=== PATIENT | male | born 1950 | race Caucasian/White ===

== ENCOUNTER 2022-12-15 09:15 | Emergency (ER) | payer MEDICARE, MEDICAID ==
[~2022-12-15] VITALS: Ht 182.9 cm; Wt 8.9 kg
[~2022-12-15 09:15] MED LIST: HYDR12.55 PO; LISI5TAB22 PO; OMEP40CA21 PO
[2022-12-15] MEDS ORDERED: acetaminophen 325mg tablet PO ONE (11:15)
[2022-12-15 16:24] VITALS: BP_DIAS 139
[2022-12-15] MEDS ORDERED: losartan 50mg tablet PO ONE (16:50)
[2022-12-15] MEDS ORDERED: LORazepam 1 MG tablet PO ONE (16:50)
[2022-12-15 17:02] VITALS: BP_SYST 224
[2022-12-15] MEDS ORDERED: HYDR-3965 PO ×2 (17:25)
[2022-12-21] MEDS ORDERED: HYDR-3964 PO (16:31)
[2022-12-21] MEDS ORDERED: LOSA50TA64 PO (16:31)
== END 2022-12-15 18:36 | disposition home or self-care (01) ==
LOC: ER 09:16
DX: G89.29 Other chronic pain (principal); M54.50 Low back pain, unspecified; W19.XXXA Unspecified fall, initial encounter; Y93.89 Activity, other specified; Y92.89 Other specified places as the place of occurrence of the external cause; Y99.8 Other external cause status
CPT/HCPCS: 72070; 72100; 72131; 93005; 99284